=== PATIENT | male | born 1990 | race Caucasian/White ===

== ENCOUNTER 2018-06-16 04:15 | Emergency (ER) | payer SELFPAY ==
[2018-06-16] MEDS ORDERED: IPRATROPIUM BROM 0.5MG/2.5ML ONE (04:40)
[2018-06-16] MEDS ORDERED: LEVALBUTEROL 1.25 MG/3 ML NEB ONE (04:40)
[2018-06-16] MEDS ORDERED: DEXAMETHASONE 4 MG TAB ONE (04:40)
--- NOTE | 2018-06-16 05:26 | ER ---
Nurse's Notes [facility] Name: Joseph Younger Age: 28 yrs Sex: Male : 1990 Arrival Date: 06/16/2018 Time: 04:16 Bed 5 Private MD: Arvin Dealney R Diagnosis: Unspecified asthma with (acute) exacerbation Presentation: 06/16 04:22 Presenting complaint: Patient states: he is having an asthma exacerbation since 2200 bb last night pt has had cold symptoms as well. Pt has used his albuterol inhaler and neb txs but they are not lasting he is continuing to have difficulty breathing. Transition of care: patient was not received from another setting of care. Onset of symptoms was June 15, 2018. Risk Assessment: Do you want to hurt yourself or someone else? Patient reports no desire to harm self or others. Initial Sepsis Screen: Does the patient meet any 2 criteria? No. Patient's initial sepsis screen is negative. Does the patient have a suspected source of infection? No. Patient's initial sepsis screen is negative. Care prior to arrival: None. 04:22 Method Of Arrival: Ambulatory bb 04:22 Acuity: JORGE 3 bb Historical: - Allergies: 04:24 Unable to obtain; bb - Home Meds: 04:24 Albuterol Inhl [Active]; Albuterol Nebulizer [Active]; bb - PMHx: 04:24 Asthma; bb - PSHx: 04:24 None; bb - Immunization history:: Adult Immunizations up to date. - Social history:: Smoking status: Patient/guardian denies using tobacco, Patient uses alcohol, occasionally. Patient/guardian denies using street drugs. - Ebola Screening: : No symptoms or risks identified at this time No symptoms or risks identified at this time. Screenin:23 Abuse screen: Denies threats or abuse. Denies injuries from another. Nutritional lp1 screening: No deficits noted. Tuberculosis screening: No symptoms or risk factors identified. Fall Risk None identified. Assessment: 04:23 General: Appears in no apparent distress. Behavior is appropriate for age. Pain: Denies lp1 pain. Neuro: Level of Consciousness is awake, alert, obeys commands. Cardiovascular: Patient's skin is warm and dry. Respiratory: Airway is patent Respiratory effort is even, labored, Respiratory pattern is regular, Breath sounds with wheezes bilaterally. Onset: The symptoms/episode began/occurred gradually. GI: No signs and/or symptoms were reported involving the gastrointestinal system. : No signs and/or symptoms were reported regarding the genitourinary system. EENT: Reports nasal congestion. Derm: Skin is pink, warm \T\ dry. Musculoskeletal: No deficits noted. 05:30 Reassessment: Patient appears in no apparent distress at this time. Patient states lp1 feeling better. Patient states symptoms have improved. Vital Signs: 04:24 BP 106 / 82; Pulse 119; Resp 18 S; Temp 98.9(O); Pulse Ox 94% on R/A; Weight 88.9 kg bb (R); Height 6 ft. 0 in. (182.88 cm) (R); Pain 6/10; 05:25 BP 115 / 78; Pulse 111; Resp 20; Pulse Ox 97% on R/A; tl2 04:24 Body Mass Index 26.58 (88.90 kg, 182.88 cm) ED Course: 04:16 Patient arrived in ED. ds1 04:16 Arvin Delaney MD is Private Physician. ds1 04:17 Kyle Hammonds MD is Attending Physician. ps1 04:22 Niya Aldridge, FARHEEN is Primary Nurse. lp1 04:23 Triage completed. bb 04:23 Patient has correct armband on for positive identification. Pulse ox on. NIBP on. lp1 04:24 Arm band placed on Patient placed in an exam room, on a stretcher, on pulse oximetry. bb Family accompanied patient. 05:25 Arvin Delaney MD is Referral Physician. ps1 05:30 No provider procedures requiring assistance completed. Patient did not have IV access lp1 during this emergency room visit. Administered Medications: 04:38 Drug: Xopenex (3) 1.25 mg Route: Inhalation; lp1 04:38 Drug: Ipratropium Aerosol 0.5 mg Route: Inhalation; lp1 04:38 Drug: Decadron 10 mg Route: PO; lp1 05:31 Follow up: Response: No adverse reaction lp1 Outcome: 05:25 Discharge ordered by . ps1 05:31 Discharged to home ambulatory, with significant other. lp1 05:31 Condition: good 05:31 Discharge instructions given to patient, Instructed on discharge instructions, follow up and referral plans. medication usage, Demonstrated understanding of instructions, follow-up care, medications, Prescriptions given X 1. 05:31 Patient left the ED. lp1 Signatures: Neris Saravia1 Hetal Minaya RN RN bb Niya Aldridge RN RN lp1 Tomasa Lang RN RN tl2 Kyle Hammonds MD MD ps1
--- NOTE | 2018-06-16 05:26 | EDPHYS ---
Physician Documentation [facility] Name: Joseph Younger Age: 28 yrs Sex: Male : 1990 Arrival Date: 06/16/2018 Time: 04:16 Bed 5 Private MD: Arvin Delaney R ED Physician Kyle Hammonds HPI: 06/16 04:35 This 28 yrs old Male presents to ER via Ambulatory with complaints of Asthma ps1 Exacerbation. 04:35 patient has had flu-like symptoms for the last 48 hours. He states that he had ps1 headache, cough, sorethroat, myalgias, and fatigue. He states that he has a history of asthma and it has become worse over the last 24. He has increased use of his inhaler and it is becoming ineffective. He used it a couple of times today. Now wheezing. . Historical: - Allergies: 04:24 Unable to obtain; bb - Home Meds: 04:24 Albuterol Inhl [Active]; Albuterol Nebulizer [Active]; bb - PMHx: 04:24 Asthma; bb - PSHx: 04:24 None; bb - Immunization history:: Adult Immunizations up to date. - Social history:: Smoking status: Patient/guardian denies using tobacco, Patient uses alcohol, occasionally. Patient/guardian denies using street drugs. - Ebola Screening: : No symptoms or risks identified at this time No symptoms or risks identified at this time. ROS: 04:35 Eyes: Negative for injury, pain, redness, and discharge, ENT: Negative for injury, ps1 pain, and discharge, Cardiovascular: Negative for chest pain, palpitations, and edema, Abdomen/GI: Negative for abdominal pain, nausea, vomiting, diarrhea, and constipation, Back: Negative for injury and pain, MS/Extremity: Negative for injury and deformity, Skin: Negative for injury, rash, and discoloration, Neuro: Negative for headache, weakness, numbness, tingling, and seizure. 04:35 Constitutional: Positive for body aches, chills, fatigue, fever, malaise. Exam: 04:35 Constitutional: This is a well developed, well nourished patient who is awake, alert, ps1 and in no acute distress. Head/Face: Normocephalic, atraumatic. Eyes: Pupils equal round and reactive to light, extra-ocular motions intact. Lids and lashes normal. Conjunctiva and sclera are non-icteric and not injected. Chest/axilla: Normal chest wall appearance and motion. Nontender with no deformity. No lesions are appreciated. Abdomen/GI: Soft, non-tender, with normal bowel sounds. No distension or tympany. No guarding or rebound. No evidence of tenderness throughout. Skin: Warm, dry with normal turgor. Normal color with no rashes, no lesions, and no evidence of cellulitis. MS/ Extremity: Pulses equal, no cyanosis. Neurovascular intact. Full, normal range of motion. Neuro: Awake and alert, GCS 15, oriented to person, place, time, and situation. Cranial nerves II-XII grossly intact. Sensory grossly intact. 04:35 Cardiovascular: Rate: tachycardic, Rhythm: regular, Pulses: no pulse deficits are appreciated. 04:35 Respiratory: the patient does not display signs of respiratory distress, Respirations: normal, Breath sounds: wheezing: expiratory that is moderate. Vital Signs: 04:24 BP 106 / 82; Pulse 119; Resp 18 S; Temp 98.9(O); Pulse Ox 94% on R/A; Weight 88.9 kg bb (R); Height 6 ft. 0 in. (182.88 cm) (R); Pain 6/10; 05:25 BP 115 / 78; Pulse 111; Resp 20; Pulse Ox 97% on R/A; tl2 04:24 Body Mass Index 26.58 (88.90 kg, 182.88 cm) bb MDM: 04:32 Patient medically screened. ps1 Administered Medications: 04:38 Drug: Xopenex (3) 1.25 mg Route: Inhalation; lp1 04:38 Drug: Ipratropium Aerosol 0.5 mg Route: Inhalation; lp1 04:38 Drug: Decadron 10 mg Route: PO; lp1 05:31 Follow up: Response: No adverse reaction lp1 Disposition: 06/16/18 05:25 Discharged to Home. Impression: Unspecified asthma with (acute) exacerbation. - Condition is Stable. - Discharge Instructions: Asthma, Adult. - Prescriptions for Medrol (Christiano) 4 mg Oral Tablets, Dose Pack - take 1 tablet by ORAL route as directed - follow package instructions; 1 packet. - Work release form, Medication Reconciliation Form, Thank You Letter, Antibiotic Education, Prescription Opioid Use form. - Follow up: Arvin Delaney MD; When: As needed; Reason: Recheck today's complaints, Re-evaluation by your physician. Follow up: Emergency Department; When: As needed; Reason: Trouble breathing, Worsening of condition. - Problem is an acute exacerbation. - Symptoms have improved. Signatures: Hetal Minaya RN RN bb iNya Aldridge RN RN lp1 Kyle Hammonds MD MD ps1 Corrections: (The following items were deleted from the chart) 05:31 05:25 06/16/2018 05:25 Discharged to Home. Impression: Unspecified asthma with (acute) lp1 exacerbation. Condition is Stable. Forms are Medication Reconciliation Form, Thank You Letter, Antibiotic Education, Prescription Opioid Use. Follow up: Arvin Delaney; When: As needed; Reason: Recheck today's complaints, Re-evaluation by your physician. Follow up: Emergency Department; When: As needed; Reason: Trouble breathing, Worsening of condition. Problem is an acute exacerbation. Symptoms have improved. ps1
== END 2018-06-16 05:31 | disposition home or self-care (01) ==
LOC: ER 04:15
DX: J45.901 Unspecified asthma with (acute) exacerbation (principal)
CPT/HCPCS: 99284